=== PATIENT | male | born 1985 | race Caucasian/White ===

== ENCOUNTER 2018-07-09 23:27 | Inpatient (IN) | payer OTHER ==
[~2018-07-09] VITALS: Ht 175.3 cm; Wt 103.4 kg
--- NOTE | 2018-07-10 | NUR ---
PT BIBF. C/O "HAVING R ELBOW. REPORTED SCREWS IN ELBOW" -SOB AOX.4 AMBULATORY W,STEADY GAIT.
[2018-07-10] MEDS ORDERED: HYDROCODONE/APAP 5/325MG 1 EACH TABLET ONE (00:27)
[2018-07-10] MEDS ORDERED: HYDROCODONE/APAP 5/325MG 1 EACH TABLET PO ONE (00:30)
[2018-07-10] MEDS ORDERED: KETOROLAC TROMETHAMINE 15 MG/ML VIAL ONE (01:45)
[2018-07-10] MEDS ORDERED: oxyCODONE/APAP (5/325 MG) 1 UDTAB TABLET ONE (01:45)
[2018-07-10 01:52] LABS: BASOPHILS # (AUTO) 0.1 /CMM (0.0-0.2); BASOPHILS % (AUTO) 0.8 % (0.0-2.0); EOSINOPHILS % (AUTO) 1.8 % (0.0-6.0); HEMATOCRIT 42 % (39-51); HEMOGLOBIN 14.2 g/dL (13.5-17.5); LYMPHOCYTES # (AUTO) 2.9 /CMM (0.8-4.8); LYMPHOCYTES % (AUTO) 24.6 % (20.0-44.0); MEAN CORPUSCULAR HGB CONC 34 g/dl (31.0-36.0); MEAN CORPUSCULAR VOLUME 87 fL (80-96); MONOCYTES # (AUTO) 1.1 /CMM (0.1-1.30); MONOCYTES % (AUTO) 9.7 % (2.0-12.0); NEUTROPHILS # (AUTO) 7.3 /CMM (1.8-8.9); NEUTROPHILS % (AUTO) 63.1 % (43.0-81.0); PLATELET COUNT (AUTO) 330 /CMM (150-450); RED BLOOD CELL COUNT(AUTO) 4.85 MIL/uL (4.5-6.0); WHITE BLOOD COUNT (AUTO) 11.6 K/uL (4.3-11.0)
[2018-07-10] MEDS ORDERED: KETOROLAC TROMETHAMINE INJ 30 MG/ML VIAL IV ONE (02:00)
[2018-07-10] MEDS ORDERED: IV NS 0.9% 1,000 ML BAG IV ONE (02:00)
[2018-07-10] MEDS ORDERED: oxyCODONE/APAP (5/325 MG) 1 UDTAB TABLET PO ONE (02:00)
[2018-07-10 02:04] LABS: CALCIUM, SERUM 8.8 mg/dL (8.5-10.1); POTASSIUM 3.3 mmol/L (3.5-5.1)
--- NOTE | 2018-07-10 02:34 | NUR ---
CALLING ORTHO FILTERATION OPERATOR FOR DR LOMAX. DR ECKERT IS FILTERATION OPERATOR.
--- NOTE | 2018-07-10 02:56 | NUR ---
[facility] PLAZA PAGED FOR PANEL.
--- NOTE | 2018-07-10 03:26 | NUR ---
REPORT GIVEN TO FAYE BAUER
[2018-07-10] MEDS ORDERED: MAG HYDROX/AL HYDROX/SIMETH 30 ML UDC PO PRN (03:30)
[2018-07-10] MEDS ORDERED: ONDANSETRON HCL/PF 4 MG/2 ML VIAL IVP PRN (03:30)
[2018-07-10] MEDS ORDERED: MAGNESIUM HYDROXIDE 30 ML UDC PO PRN (03:30)
[2018-07-10] MEDS ORDERED: Z GUARD REMEDY 2 OZ OINT TP PRN (03:30)
[2018-07-10] MEDS ORDERED: ACETAMINOPHEN 325 MG TABLET PO PRN (03:30)
[2018-07-10] MEDS ORDERED: HYDROCODONE/APAP 5/325MG 1 EACH TABLET PO PRN (03:30)
[2018-07-10] MEDS ORDERED: KETOROLAC TROMETHAMINE INJ 30 MG/ML VIAL IM PRN (03:30)
[2018-07-10 04:00] VITALS: BP 115/76
--- NOTE | 2018-07-10 04:00 | NUR ---
MS/RN OPENING NOTES PT RECEIVED FROM ER, AMBULATED TO THE BED. A/OX4. ON ROOM AIR, BREATHING EVEN AND UNLABORED. DENIES SOB. IN NO ACUTE DISTRESS. PAIN NOTED TO RIGHT ELBOW 08/27, RECEIVED PAIN MEDS IN THE ER, NOT REQUESTING ANY AT THIS TIME. IV TO LAC PATENT AND INTACT. ORIENTED PT TO ROOM AND CALL LIGHT. BELONGINGS LIST COMPLETED. HOB ELEVATED. BED IN LOW/LOCKED POSITION WITH CALL LIGHT IN REACH, BILAT. UPPER SIDE RAILS IN PLACE. WILL CONTINUE TO MONITOR
[2018-07-10] MEDS: IV NS 0.9% 1,000 ML IV PRN (04:41)
--- NOTE | 2018-07-10 07:12 | NUR ---
MS/RN CLOSING NOTES PT ASLEEP, OPENS EYES SPONTANEOUSLY. ON ROOM AIR, BREATHING EVEN AND UNLABORED. DENIES SOB AND PAIN AT THIS TIME. NPO STATUS MAINTAINED. IV TO LAC PATENT AND INTACT RUNNING IVF ORDERED. NO SIGNIFICANT CHANGES OVERNIGHT. ALL NEEDS MET. ORTHO CONSULT TODAY. BED IN LOW/LOCKED POSITION WITH CALL LIGHT IN REACH. BILAT. SIDE RAILS UPX2. WILL ENDORSE TO DAY SHIFT RN RAYMOND.
--- NOTE | 2018-07-10 07:57 | NUR ---
MS RN NOTES PATIENT RECEIVED RESTING INSIDE ROOM. AWAKE, ALERT AND ORIENTED X4. VERBALLY RESPONSIVE AND RESPONDS TO VERBAL AND TACTILE STIMULI. BREATHING EVEN AND UNLABORED. NO CHANGES IN LOC AT THIS TIME. NO ACUTE DISTRESS AT THIS TIME. CONTINUE WITH NPO STATUS. PATIENT VERBALIZED UNDERSTANDING. WILL COTNINUE TO MONITOR. BED LOCKED AND IN LOW POSITION. BILATERAL UPPER SIDE RAILS UP AND LOCKED. CALL LIGHT WITHIN EASY REACH
[2018-07-10 08:00] VITALS: BP 124/68
[2018-07-10] MEDS: POTASSIUM CL. PREMIX PERIPHER. 50 ML IV SCH ×2 (10:45→12:46)
[2018-07-10] MEDS ORDERED: PIPERACILLIN /TAZOBACTAM 3.375 G in IV D5W 50 ML IV ONE (14:00)
[2018-07-10] MEDS ORDERED: FEE PK DOSING 1 MIN EA MC ONE (14:08)
--- NOTE | 2018-07-10 14:08 | NUR ---
MS RN NOTES PATIENT SEEN AND EXAMINED BY DR. BERUMEN. WITH NEW ORDERS FOR IV ATB AND GAVE OK FOR PATIENT TO EAT, OK TO START REGULAR DIET. ORDERS NOTED AND CARRIED OUT. PATIENT MADE AWARE AND VERBALIZED UNDERSTANDING. PHARMACY AWARE. WILL CONTINUE TO MONITOR
[2018-07-10] MEDS ORDERED: KETOROLAC TROMETHAMINE INJ 30 MG/ML VIAL IV PRN (15:30)
[2018-07-10] MEDS: VANCOMYCIN 1 GM in IV D5W 250 ML IV SCH ×2 (15:31→22:41)
[2018-07-10 16:00] VITALS: BP 123/68
--- NOTE | 2018-07-10 18:55 | NUR ---
MS RN NOTES PATIENT RESTING INSIDE ROOM. AWAKE, ALERT AND ORIENTED X 4, VERBALLY RESPONSIVE AND RESPONDS TO VERBAL AND TACTILE STIMULI. BREATHING EVEN AND UNLABORED. NO CHANGES IN LOC NOTED AT THIS TIME. PATIENT CALM AND RELAXED. NO ACUTE DISTRESS AT THIS TIME. IV IN PLACE AND FLUSHING WELL. MRI DONE, AWAITING FOR RESULT. WILL ENDORSE TO INCOMING SHIFT FOR RAYMOND. BED LOCKED AND IN LOW POSITION. BILATERAL UPPER SIDE RAILS UP AND LOCKED. CALL LIGHT WITHIN EASY REACH
--- NOTE | 2018-07-10 19:25 | NUR ---
MS/RN OPENING NOTES PT RECEIVED AWAKE, LAYING COMFORTABLY IN BED. FAMILY AT BEDSIDE. ON ROOM AIR, BREATHING EVEN AND UNLABORED. DENIES SOB. PAIN NOTED TO RIGHT ELBOW 08/27, WANTS TO TAKE PAIN MEDICATION LATER. IV TO LAC AND LEFT WRIST PATENT AND INTACT RUNNING IVF ORDERED. AWAITING RESULT OF RIGHT ELBOW MRI. BED IN LOW/LOCKED POSITION WITH CALL LIGHT IN REACH, SIDE RAILS UPX2 AND HOB ELEVATED. WILL CONTINUE TO MONITOR
[2018-07-10 20:00] VITALS: BP 127/71
[2018-07-10] MEDS: PIPERACILLIN /TAZOBACTAM 3.375 G in IV D5W 100 ML IV SCH (21:15)
[2018-07-11] MEDS: PIPERACILLIN /TAZOBACTAM 3.375 G in IV D5W 100 ML IV SCH ×3 (05:17→21:31)
[2018-07-11] MEDS: VANCOMYCIN 1 GM in IV D5W 250 ML IV SCH ×3 (05:22→22:41)
[2018-07-11] MEDS: IV NS 0.9% 1,000 ML IV PRN (05:27)
--- NOTE | 2018-07-11 06:40 | NUR ---
MS/RN CLOSING NOTES PT AWAKE, RESTING COMFORTABLY IN BED. ON ROOM AIR, BREATHING EVEN AND UNLABORED. DENIES SOB AND PAIN AT THIS TIME. IV TO LAC PATENT AND INTACT RUNNING IV ABX ORDERED. IV TO LEFT WRIST INFILTRATED. INSERTED NEW IV TO RIGHT HAND #[id number]. IV ABX RESUMED. NO SIGNIFICANT CHANGES OVERNIGHT. ALL NEEDS MET. BED IN LOW/LOCKED POSITION WITH CALL LIGHT IN REACH, SIDE RAILS UPX2 AND HOB ELEVATED. WILL ENDORSED TO DAY SHIFT RN RAYMOND
[2018-07-11 07:19] LABS: BASOPHILS # (AUTO) 0.1 /CMM (0.0-0.2); BASOPHILS % (AUTO) 0.7 % (0.0-2.0); EOSINOPHILS % (AUTO) 3.5 % (0.0-6.0); HEMATOCRIT 40 % (39-51); HEMOGLOBIN 13.7 g/dL (13.5-17.5); LYMPHOCYTES # (AUTO) 2.3 /CMM (0.8-4.8); LYMPHOCYTES % (AUTO) 23.5 % (20.0-44.0); MEAN CORPUSCULAR HGB CONC 34 g/dl (31.0-36.0); MEAN CORPUSCULAR VOLUME 87 fL (80-96); MONOCYTES # (AUTO) 0.8 /CMM (0.1-1.30); MONOCYTES % (AUTO) 8.4 % (2.0-12.0); NEUTROPHILS # (AUTO) 6.3 /CMM (1.8-8.9); NEUTROPHILS % (AUTO) 63.9 % (43.0-81.0); PLATELET COUNT (AUTO) 286 /CMM (150-450); RED BLOOD CELL COUNT(AUTO) 4.65 MIL/uL (4.5-6.0); WHITE BLOOD COUNT (AUTO) 9.9 K/uL (4.3-11.0)
[2018-07-11 07:37] LABS: CALCIUM, SERUM 8.7 mg/dL (8.5-10.1); MAGNESIUM 2.1 mg/dL (1.8-2.4); PHOSPHORUS 3.6 mg/dL (2.5-4.9); THYROID STIMULATING HORMONE 4.088 uIU/mL (0.358-3.74)
--- NOTE | 2018-07-11 07:40 | NUR ---
MS/RN Patient received Patient received from professor of music. A/O X4, vital signs within range, no fever. Per patient, still has some pain to right elbow but does not want any pain medication at this time. Call light within reach, will continue to monitor and ensure safety.
[2018-07-11 08:00] VITALS: BP 130/68
--- NOTE | 2018-07-11 10:00 | NUR ---
MS/RN S/B Dr Andrade Seen by Dr Andrade - MRI results reviewed, waiting on ortho to decide next treatment plan.
--- NOTE | 2018-07-11 13:07 | NUR ---
MS/RN MRI report MRI report relayed to hiral BOLAÑOS. Informed that they are waiting for Dr Sequeira to come out of surgery and review report and decide if patient would require aspiration or surgery. Patient updated as to plan.
[2018-07-11] MEDS ORDERED: LIDOCAINE 1%-EPI 1:100,000 20 ML VIAL TP ONE (13:30)
[2018-07-11 16:00] VITALS: BP 138/60
--- NOTE | 2018-07-11 16:00 | NUR ---
MS/RN S/B Dr Sequeira Seen by Dr Sequeira - right elbow aspiration at bedside, fluid sent to lab.
[2018-07-11] MEDS: LACTOBACILLUS RHAMNOSUS GG 1 EACH CAP.SPRINK PO SCH (16:31)
--- NOTE | 2018-07-11 18:26 | NUR ---
MS/RN End note Patient remains in stable condition, all needs attended. Continues with vanco and zosyn, no reaction noted. Awaiting cultures and cell count on aspirated fluid. Will endorse to overnight stocker.
--- NOTE | 2018-07-11 19:15 | NUR ---
CHANGE OF SHIFT REPORT Received patient awake, up sitting in the chair. A/o x4, stable oxygen saturation on RA. Right elbow covered with dry gauze, denies pain. Call light within reach, safety measure explained, verbalized understanding.
[2018-07-11 20:00] VITALS: BP 136/77
[2018-07-11 20:31] VITALS: BP 136/77
[2018-07-12] MEDS: PIPERACILLIN /TAZOBACTAM 3.375 G in IV D5W 100 ML IV SCH ×3 (05:15→20:44)
[2018-07-12] MEDS: VANCOMYCIN 1 GM in IV D5W 250 ML IV SCH ×3 (06:23→22:06)
--- NOTE | 2018-07-12 06:34 | NUR ---
END OF SHIFT REPORT Patient in bed, stable oxygen saturation on RA. Right elbow covered with dry gauze, denies pain. On IV antibiotic as scheduled, slept well. No acute events overnight. Independent with bed mobility and ambulation. Call light within reach, safety measure explained, verbalized understanding.
[2018-07-12 06:51] LABS: CALCIUM, SERUM 9.2 mg/dL (8.5-10.1); CREATININE 0.9 mg/dL (0.6-1.3)
[2018-07-12 07:02] LABS: BASOPHILS # (AUTO) 0.1 /CMM (0.0-0.2); BASOPHILS % (AUTO) 0.8 % (0.0-2.0); EOSINOPHILS % (AUTO) 3.3 % (0.0-6.0); HEMATOCRIT 42 % (39-51); HEMOGLOBIN 14.4 g/dL (13.5-17.5); LYMPHOCYTES # (AUTO) 2.4 /CMM (0.8-4.8); LYMPHOCYTES % (AUTO) 25.1 % (20.0-44.0); MEAN CORPUSCULAR HGB CONC 34 g/dl (31.0-36.0); MEAN CORPUSCULAR VOLUME 87 fL (80-96); MONOCYTES # (AUTO) 0.8 /CMM (0.1-1.30); NEUTROPHILS # (AUTO) 5.9 /CMM (1.8-8.9); NEUTROPHILS % (AUTO) 62.8 % (43.0-81.0); PLATELET COUNT (AUTO) 315 /CMM (150-450); RED BLOOD CELL COUNT(AUTO) 4.81 MIL/uL (4.5-6.0); WHITE BLOOD COUNT (AUTO) 9.4 K/uL (4.3-11.0)
--- NOTE | 2018-07-12 07:15 | NUR ---
MS/RN OPENING NOTES PT RECEIVED AWAKE IN BED IN NO ACUTE SIGNS OF DISTRESS. A/0 X4. ABLE TO MAKE NEEDS KNOWN, DENIES PAIN OR DISCOMFORTS AT THIS TIME. ON ROOM AIR, BREATHING EVEN AND UNLABORED. PIV'S ON LFA AND RIGHT HAND BOTH INTACT AND PATENT, IV ABT'S RUNNING ORDERED AT THIS TIME, NO S/S OF INFILTRATIONS NOTED. SAFETY MEASURES IN PLACE. BED IN LOW/LOCKED POSITION WITH CALL LIGHT IN REACH. SIDE RAILS UPX2. WILL CONTINUE TO MONITOR
[2018-07-12 08:00] VITALS: BP 129/90
[2018-07-12] MEDS: LACTOBACILLUS RHAMNOSUS GG 1 EACH CAP.SPRINK PO SCH ×2 (08:21→16:04)
--- NOTE | 2018-07-12 11:01 | NUR ---
RN NOTES PATIENT ASKED IF HE CAN TAKE A SHOWER. DR SWARTZ ON UNIT INFORMED AND SAID "IT'S OK".
[2018-07-12 16:00] VITALS: BP 110/65
--- NOTE | 2018-07-12 18:46 | NUR ---
MS/RN CLOSING NOTES PT IN BED AWAKE AND RESTING IN BED WITH FAMILY AT BEDSIDE. A/0 X4. ABLE TO MAKE NEEDS KNOWN AND AMBULATORY. ON ROOM AIR, TOLERATING WELL WITH NO ACUTE DISTRESS NOTED. PIV'S ON LFA AND RIGHT HAND BOTH INTACT AND PATENT. ALL SAFETY MEASURES KEPT IN PLACE. BED IN LOW/LOCKED POSITION WITH CALL LIGHT IN REACH. SIDE RAILS UPX2. ALL NEEDS AND CARE ATTENDED WELL. WILL ENDORSE TO [employer] SURFACE HEATER OPERATOR NURSE FOR RAYMOND.
--- NOTE | 2018-07-12 19:30 | NUR ---
RECEIVED PATIENT IN BED AWAKE. AO X 3, ABLE TO MAKE NEEDS KNOWN. NO ACUTE DISTRESS NOTED. MONITORED FOR PAIN. RIGHT ELBOW DRESSING INTACT. IV SITES PATENT, INTACT; FLUSHED. SAFETY REMINDERS GIVEN. ON LOW BED WITH BILATERAL UPPER SIDE RAILS UP. CALL [place] WITHIN EASY REACH. WILL CONTINUE TO MONITOR. FAMILY AT BEDSIDE.
[2018-07-12 19:59] VITALS: BP 133/70
[2018-07-12 20:00] VITALS: BP 133/70
[2018-07-13] MEDS: PIPERACILLIN /TAZOBACTAM 3.375 G in IV D5W 100 ML IV SCH ×3 (05:41→21:34)
[2018-07-13] MEDS: VANCOMYCIN 1 GM in IV D5W 250 ML IV SCH ×3 (05:42→21:34)
[2018-07-13 06:09] LABS: BASOPHILS # (AUTO) 0.1 /CMM (0.0-0.2); BASOPHILS % (AUTO) 0.6 % (0.0-2.0); HEMATOCRIT 41 % (39-51); HEMOGLOBIN 13.7 g/dL (13.5-17.5); MEAN CORPUSCULAR HGB CONC 34 g/dl (31.0-36.0); MEAN CORPUSCULAR VOLUME 87 fL (80-96); MONOCYTES # (AUTO) 0.9 /CMM (0.1-1.30); MONOCYTES % (AUTO) 9.1 % (2.0-12.0); NEUTROPHILS # (AUTO) 6.6 /CMM (1.8-8.9); NEUTROPHILS % (AUTO) 65.3 % (43.0-81.0); PLATELET COUNT (AUTO) 325 /CMM (150-450); RED BLOOD CELL COUNT(AUTO) 4.63 MIL/uL (4.5-6.0); WHITE BLOOD COUNT (AUTO) 10.1 K/uL (4.3-11.0)
[2018-07-13 06:21] LABS: CALCIUM, SERUM 9.1 mg/dL (8.5-10.1); CREATININE 0.9 mg/dL (0.6-1.3)
--- NOTE | 2018-07-13 06:30 | NUR ---
PATIENT ASLEEP, EASILY AROUSABLE. RESPIRATIONS EVEN. NO SIGNS OF PAIN NOTED. DUE MEDS GIVEN WITH NO ASE NOTED. NEEDS ATTENDED. SAFETY PRECAUTIONS AND COMFORT MEASURES IN PLACE. WILL GIVE REPORT TO DAY SHIFT FOR CONTINUITY OF CARE.
--- NOTE | 2018-07-13 07:00 | NUR ---
MS RN NOTES PATIENT IN BED ALERT ORIENTED X 4. NO ACUTE DISTRESS NOTED. BREATHING UNLABORED. NO SOB NOTED. IV ACCESS PATENT AND INTACT, NO REDNESS OR SWELLING NOTED. SAFETY MEASURES IN PLACE. CALL LIGHT WITHIN REACH. WILL CONTINUE TO MONITOR ACCORDINGLY.
[2018-07-13 08:00] VITALS: BP 115/67
[2018-07-13] MEDS: LACTOBACILLUS RHAMNOSUS GG 1 EACH CAP.SPRINK PO SCH ×2 (08:54→16:51)
[2018-07-13 16:00] VITALS: BP_SYST 122; BP_SYST 136; BP_DIAS 59; BP_DIAS 82
--- NOTE | 2018-07-13 19:00 | NUR ---
MS RN NOTES PATIENT IN BED ALERT ORIENTED X 4. NO ACUTE DISTRESS NOTED. BREATHING UNLABORED. NO SOB NOTED. IV ACCESS PATENT AND INTACT, NO REDNESS OR SWELLING NOTED. DUE MEDICATIONS GIVEN, NO ASE NOTED. NEEDS ATTENDED AND ANTICIPATED. KEPT CLEAN DRY AND COMFORTABLE. SAFETY MEASURES IN PLACE. CALL LIGHT WITHIN REACH. ENDORSED TO NIGHT NURSE FOR CONTINUITY OF CARE.
--- NOTE | 2018-07-13 19:20 | NUR ---
RN INITIAL NOTES: RECEIVED REPORT FROM COLTON BAUER. PT IN BED, AWAKE, A/O X4, ON RA RESPIRATION EVEN AND UNLABORED, S/P ASPIRATION BIOPSY ON 07/[address] ECKERT, DRESSING IN PLACED, C/D/I, NO ACTIVE BLEEDING NOTED, PT ABLE TO MOVE RIGHT ELBOW WITHOUT DIFFICULTY, HOWEVER HE'S NOW COMPLAINING THAT HIS LEFT ELBOW IS HURTING, NEEDS SUPPORT UPON MOVING LEFT ARM, NOTED SWELLING ON THE AREA, AND WARM TO TOUCH, LIMITED ROM, CLAIMED PAIN STARTED AFTER TAKING BP YESTERDAY AND HE PREVIOUSLY HAD IV ACCESS ON THE SAID SITE. PATIENT HAVE 2 IV ACCESS IN PLACED, PATENT AND FLUSHING WELL, ON HL. BUE OFFLOADED ON PILLOWS. SAFETY PRECAUTIONS FOR FALL INITAITED, CALL LIGHT IN REACH, WILL CONTINUE MONITORING PT.
--- NOTE | 2018-07-13 19:48 | NUR ---
RN NOTES: PT C/O LEFT ELBOW EXCRUCIATING PIN REQUESTING FOR TORADOL, NO PRN TORADOL ORDERED FOR THE PT, PER PT PS 10/27, CONTACTED MD APPLICATIONS CONSULTANT, AWAITING FOR CALLBACK
[2018-07-13 20:00] VITALS: BP 140/78
--- NOTE | 2018-07-13 20:06 | NUR ---
RN NOTES: RECEIVED CALL FROM DR OLIVAREZ, INFORMED ABOUT PT'S COMPLAIN OF LEFT ELBOW PAIN, INFORMED MD ABOUT PT'S RESULT OF BUN AND CREATININE, PER MD T/O OF TORADOL 30MG IVP Q8HRS PRN FOR SEVERE PAIN -12/27
--- NOTE | 2018-07-13 20:16 | NUR ---
PRN TORADOL: PT C/O 10/27 PAIN ON LEFT ELBOW, NOTED SWELLING, HOT TO TOUCH, ICE [PACK APPLIED, OFFLOADED ON PILLOWS, PT REQUESTING FOR TORADOL, PRN TORADOL 30 MG IVP ADMINISTERED TO THE PT AT THIS TIME, EDUCATION PROVIDED TO THE PT, WILL CONTINUE TO MONITOR AND REASSESS
[2018-07-13] MEDS ORDERED: KETOROLAC TROMETHAMINE INJ 30 MG/ML VIAL IV PRN (20:30)
--- NOTE | 2018-07-13 22:00 | NUR ---
RN NOTES: PT CLAIMED HE'S PAIN IS A LOT BETTER, CLAIMED IT'S STILL HURTS BUT NOW PS 05/27
--- NOTE | 2018-07-14 03:25 | NUR ---
RN NOTES: SEEN SLEEPING COMFORTABLY, NO FACIAL GRIMACE NOTED, WILL CONTINUE MONITORING PT
[2018-07-14] MEDS: PIPERACILLIN /TAZOBACTAM 3.375 G in IV D5W 100 ML IV SCH ×3 (05:00→21:07)
[2018-07-14] MEDS: VANCOMYCIN 1 GM in IV D5W 250 ML IV SCH ×3 (05:01→21:07)
--- NOTE | 2018-07-14 06:30 | NUR ---
RN CLOSING NOTES: PT IN BED, AWAKE, REMAINS ON RA. DENIES ANY PAIN OR DISCOMFORT AT THIS TIME, IV ACCESS REMAINS PATENT AND FLUSHING WELL, ONGOING IV ATB ORDERED. VS REMAINS STABLE, NEEDS ATTENDED. SAFETY PRECAUTIONS FOR FALL REMAINS ENGAGED, CALL LIGHT IN REACH, WILL ENDORSE TO DAY RN FOR CONTINUITY OF CARE
[2018-07-14 06:33] LABS: BASOPHILS # (AUTO) 0.1 /CMM (0.0-0.2); BASOPHILS % (AUTO) 0.9 % (0.0-2.0); EOSINOPHILS % (AUTO) 4.6 % (0.0-6.0); HEMATOCRIT 40 % (39-51); HEMOGLOBIN 13.6 g/dL (13.5-17.5); LYMPHOCYTES # (AUTO) 2.1 /CMM (0.8-4.8); LYMPHOCYTES % (AUTO) 22.1 % (20.0-44.0); MEAN CORPUSCULAR HGB CONC 34 g/dl (31.0-36.0); MEAN CORPUSCULAR VOLUME 87 fL (80-96); MONOCYTES # (AUTO) 0.7 /CMM (0.1-1.30); MONOCYTES % (AUTO) 7.8 % (2.0-12.0); NEUTROPHILS # (AUTO) 6.1 /CMM (1.8-8.9); NEUTROPHILS % (AUTO) 64.6 % (43.0-81.0); PLATELET COUNT (AUTO) 322 /CMM (150-450); RED BLOOD CELL COUNT(AUTO) 4.56 MIL/uL (4.5-6.0); WHITE BLOOD COUNT (AUTO) 9.4 K/uL (4.3-11.0)
[2018-07-14 06:43] LABS: CALCIUM, SERUM 8.5 mg/dL (8.5-10.1); POTASSIUM 3.8 mmol/L (3.5-5.1)
[2018-07-14 08:00] VITALS: BP 125/73
[2018-07-14] MEDS: LACTOBACILLUS RHAMNOSUS GG 1 EACH CAP.SPRINK PO SCH ×2 (09:11→17:49)
[2018-07-14 16:00] VITALS: BP 129/67
--- NOTE | 2018-07-14 19:15 | NUR ---
rn initial notes: received report form Mendy BAUER. pt sitting on a chair, family at bed side, pt eating dinner. denies any pain or discomfort at this time. iv access patent and flushing well, on hl, no s/s of infiltration or swelling noted. pt s/p aspiration biopsy on 07/[address] clancy, dressing c/d/i, no active bleeding noted, pt able to move elbow/arm with full ROM, no complaints on left elbow, swelling improved. safety precautions for fall initiated, call light in reach, will continue monitoring pt.
[2018-07-14 20:00] VITALS: BP 126/79
[2018-07-15] MEDS: PIPERACILLIN /TAZOBACTAM 3.375 G in IV D5W 100 ML IV SCH ×2 (05:05→12:29)
[2018-07-15] MEDS: VANCOMYCIN 1 GM in IV D5W 250 ML IV SCH ×2 (05:06→14:17)
--- NOTE | 2018-07-15 06:56 | NUR ---
RN CLOSING NOTES: PT IN BED, DENIES ANY PAIN OR DISCOMFORT AT THIS TIME. IV ACCESS REMAINS PATENT AND FLUSHING WELL, ON HL, REMAINS FREE FROM S/S OF INFILTRATION. STILL WAITING FOR FINAL FLUID CULTURE PRIOR TO DC. VS REMAINS STABLE, NEEDS ATTENDED. SAFETY PRECAUTIONS REMAINS ENGAGED, SIDE RAILS UP X2 FOR SAFETY. CALL LIGHT IN REACH, WILL ENDORSE TO DAY RN FOR CONTINUITY OF CARE.
--- NOTE | 2018-07-15 07:15 | NUR ---
MS RN NOTES PATIENT IN BED ALERT ORIENTED X4 . NO ACUTE DISTRESS NOTED, BREATHING UNLABORED. NO SOB NOTED. IV ACCESS PATENT AND INTACT, NO REDNESS OR SWELLING NOTED. SAFETY MEASURES IN PLACE, CALL LIGHT WITHIN REACH. WILL CONTINUE TO MONITOR ACCORDINGLY.
[2018-07-15 07:31] LABS: BASOPHILS # (AUTO) 0.1 /CMM (0.0-0.2); BASOPHILS % (AUTO) 0.9 % (0.0-2.0); EOSINOPHILS % (AUTO) 4.6 % (0.0-6.0); HEMATOCRIT 39 % (39-51); HEMOGLOBIN 13.3 g/dL (13.5-17.5); LYMPHOCYTES # (AUTO) 2.1 /CMM (0.8-4.8); LYMPHOCYTES % (AUTO) 21.1 % (20.0-44.0); MEAN CORPUSCULAR HGB CONC 34 g/dl (31.0-36.0); MEAN CORPUSCULAR VOLUME 87 fL (80-96); MONOCYTES # (AUTO) 0.7 /CMM (0.1-1.30); MONOCYTES % (AUTO) 7.6 % (2.0-12.0); NEUTROPHILS # (AUTO) 6.4 /CMM (1.8-8.9); NEUTROPHILS % (AUTO) 65.8 % (43.0-81.0); PLATELET COUNT (AUTO) 337 /CMM (150-450); RED BLOOD CELL COUNT(AUTO) 4.48 MIL/uL (4.5-6.0); WHITE BLOOD COUNT (AUTO) 9.8 K/uL (4.3-11.0)
[2018-07-15] MEDS: LACTOBACILLUS RHAMNOSUS GG 1 EACH CAP.SPRINK PO SCH ×2 (08:24→16:50)
[2018-07-15 08:38] LABS: CALCIUM, SERUM 8.8 mg/dL (8.5-10.1); CREATININE 0.9 mg/dL (0.6-1.3)
--- NOTE | 2018-07-15 10:20 | NUR ---
MS RN NOTES SEEN AND EVALUATED BY DR NBA BERUMEN WITH NEW ORDERS NOTED AND CARRIED OUT.
[2018-07-15] MEDS ORDERED: AZIT1PAC9 PO (10:28)
[2018-07-15] MEDS ORDERED: CEFI200S PO (10:28)
[2018-07-15 16:00] VITALS: BP 118/67
--- NOTE | 2018-07-15 17:15 | NUR ---
MS DIRECTOR FINANCIAL SERVICES NOTES PATIENT DISCHARGED HOME WITH STABLE VITAL SIGNS, NO ACUTE DISTRESS NOTED. DENIED ANY PAIN. DISCHARGE INSTRUCTIONS GIVEN TO THE PATIENT INCLUDING NEW PRESCRIPTION, FOLLOW UP WITH PRIMARY DOCTOR AND DR ECKERT (ORTHOPEDIC) AND FOLLOW ASPIRATE ELBOW BODY FLUID FINAL RESULT, VERBALIZED UNDERSTANDING. ALL BELONGINGS ACCOUNTED FOR. SKIN IS INTACT, NO REDNESS OR SWELLING NOTED ON THE RIGHT ELBOW. IV ACCESS REMOVED, NO REDNESS OR SWELLING NOTED. PATIENT ALERT ORIENTED X 4, AMBULATORY WITH STEADY GAIT. ASSISTED TO THE LOBBY PICKED BY FAMILY VIA PRIVATE CAR IN STABLE CONDITION.
== END 2018-07-15 17:15 | disposition home or self-care (01) | DRG 549 ==
LOC: ER 23:29 → MEDSG2 07-10 03:00
PROVIDERS: ADMIT Family Medicine; ATTEND Family Medicine
PROC: 0R9L3ZZ Drainage of Right Elbow Joint, Percutaneous Approach (ICD-10-PCS; principal; 2018-07-11)
DX: M00.9 Pyogenic arthritis, unspecified (principal); N17.9 Acute kidney failure, unspecified; E87.6 Hypokalemia; D72.829 Elevated white blood cell count, unspecified; R70.0 Elevated erythrocyte sedimentation rate; M25.421 Effusion, right elbow
CPT/HCPCS: 36415; 73080-TC; 73221-TC; 80048-TC; 80061-TC; 80202-TC; 83735-TC; 84100-TC; 84439-TC; 84443-TC; 85025-TC; 85652-TC; 85730-TC; 86140-TC; 87040-TC; 87070-TC; 87081-TC; G0378; J1885; J2543; J3370; J3480; J3490; J7030; J7050; J7060